=== PATIENT | female | born 1955 | race Caucasian/White ===

== ENCOUNTER 2017-05-21 09:03 | Outpatient (CLI) | payer OTHER ==
[2017-05-21 10:16] LABS: BASOPHILS # (AUTO) 0.1 10^3/uL (0.0-0.1); BASOPHILS % (AUTO) 0.9 %; EOSINOPHILS # (AUTO) 0.1 10^3/uL (0.0-0.7); HCT - HEMATOCRIT 37.8 % (37.0-47.0); HGB - HEMOGLOBIN 12.6 g/dL (12.0-16.0); LYMPHOCYTES # (AUTO) 2.7 10^3/uL (1.5-3.5); LYMPHOCYTES % (AUTO) 45.1 %; MEAN CORPUSCULAR HEMOGLOBIN 30.1 pg (27.0-31.0); MEAN CORPUSCULAR HGB CONC 33.4 g/dL (32.0-36.0); MEAN CORPUSCULAR VOLUME 90.2 fL (81.0-99.0); MEAN PLATELET VOLUME 7.7 fL (7.9-10.8); MONOCYTES # (AUTO) 0.5 10^3/uL (0.0-1.0); MONOCYTES % (AUTO) 8.4 %; NEUTROPHILS # (AUTO) 2.6 10^3/uL (1.5-6.6); NEUTROPHILS % (AUTO) 43.6 %; RED BLOOD COUNT 4.19 10^6/uL (4.20-5.40); RED CELL DISTRIBUTION WIDTH 13.6 % (12.0-15.0)
--- NOTE | 2017-05-21 13:14 | XRAY Report ---
TWO-VIEW RIGHT HIP: 05/21/2017 CLINICAL INDICATION: Hip pain, history of total hip replacement. FINDINGS: Frontal view of the hips and pelvis and frogleg lateral view of the right hip demonstrate no evidence of fracture or dislocation. Hip replacement is in place. There is no evidence of hardwa re complication. IMPRESSION: RIGHT HIP REPLACEMENT. NO FRACTURE OR HARDWARE COMPLICATION IS IDENTIFIED. JOB #: [id number] EXT JOB #:[id number]
== END 2017-05-21 09:04 | disposition home or self-care (01) ==
LOC: LAB 09:03
PROVIDERS: ATTEND Internal Medicine
DX: M25.551 Pain in right hip (principal); Z98.1 Arthrodesis status
CPT/HCPCS: 36415; 85025; 85651; 86140

== ENCOUNTER 2017-07-08 09:45 | Outpatient (CLI) | payer OTHER | END 2017-07-08 09:46 | disposition home or self-care (01) | LOC: LAB.R 09:45 | PROVIDERS: ATTEND Physician Assistant Medical | DX: R39.9 Unspecified symptoms and signs involving the genitourinary system (principal) | CPT/HCPCS: 87086 ==

== ENCOUNTER 2017-08-08 08:04 | Outpatient (CLI) | payer OTHER ==
[2017-08-08 08:23] LABS: BASOPHILS # (AUTO) 0.1 10^3/uL (0.0-0.1); BASOPHILS % (AUTO) 1.4 %; EOSINOPHILS # (AUTO) 0.1 10^3/uL (0.0-0.7); EOSINOPHILS % (AUTO) 1.7 %; HCT - HEMATOCRIT 40.2 % (37.0-47.0); HGB - HEMOGLOBIN 13.3 g/dL (12.0-16.0); LYMPHOCYTES # (AUTO) 2.7 10^3/uL (1.5-3.5); LYMPHOCYTES % (AUTO) 41.4 %; MEAN CORPUSCULAR HEMOGLOBIN 29.6 pg (27.0-31.0); MEAN CORPUSCULAR HGB CONC 33.2 g/dL (32.0-36.0); MEAN CORPUSCULAR VOLUME 89.3 fL (81.0-99.0); MEAN PLATELET VOLUME 7.5 fL (7.9-10.8); MONOCYTES # (AUTO) 0.4 10^3/uL (0.0-1.0); MONOCYTES % (AUTO) 6.5 %; NEUTROPHILS # (AUTO) 3.2 10^3/uL (1.5-6.6); RED BLOOD COUNT 4.49 10^6/uL (4.20-5.40); RED CELL DISTRIBUTION WIDTH 13.7 % (12.0-15.0); UNCORRECTED WHITE BLOOD COUNT 6.5 x10^3/uL; WHITE BLOOD COUNT 6.5 x10^3/uL (4.8-10.8)
[2017-08-08 08:35] LABS: ALBUMIN/GLOBULIN RATIO 1.5 (1.0-2.2); BILIRUBIN,TOTAL 0.7 mg/dL (0.2-1.0); BUN - BLOOD UREA NITROGEN 13 mg/dL (6-20); CALCIUM 9.5 mg/dL (8.5-10.3); CARBON DIOXIDE - CO2 27 mmol/L (21-32); CHLORIDE 103 mmol/L (101-111); CHOL/HDL RATIO 6.5 (<4.4); CHOLESTEROL 258 mg/dL; CREATININE 0.8 mg/dL (0.4-1.0); GFR - MDRD 73 (>89); GLUCOSE 120 mg/dL (70-100); HDL CHOLESTEROL 40 mg/dL; SODIUM 140 mmol/L (135-145); TOTAL PROTEIN 7.7 g/dL (6.7-8.2); TRIGLYCERIDES 298 mg/dL; VLDL CHOLESTEROL 60 mg/dL
== END 2017-08-08 08:05 | disposition home or self-care (01) ==
LOC: LAB 08:04
PROVIDERS: ATTEND Physician Assistant Medical
DX: Z79.899 Other long term (current) drug therapy (principal); M15.9 Polyosteoarthritis, unspecified; F32.9 Major depressive disorder, single episode, unspecified; M25.562 Pain in left knee
CPT/HCPCS: 80053; 80061; 84443; 85025

== ENCOUNTER 2017-10-01 13:32 | Outpatient (CLI) | payer OTHER | END 2017-10-01 13:33 | disposition home or self-care (01) | LOC: LAB.R 13:32 | PROVIDERS: ATTEND Physician Assistant Medical | DX: N30.00 Acute cystitis without hematuria (principal) | CPT/HCPCS: 87086 ==

== ENCOUNTER 2017-10-03 14:37 | Outpatient (CLI) | payer OTHER ==
--- NOTE | 2017-10-05 07:44 | Ultrasound Report ---
EXAM: THYROID ULTRASOUND EXAM DATE: 10/03/2017 03:34 PM. CLINICAL HISTORY: Elevated TSH. COMPARISON: None. TECHNIQUE: Real-time sonographic imaging of the thyroid was performed by the prepress specialist. Multiple re presentative static images were saved for review. FINDINGS: THYROID GLAND: Right Lobe: 4.3 x 1.1 x 1.5 cm, volume 3.7 cc. Mildly heterogeneous. Normal vascularity. Right Lobe Nodules: 1. Superior medial hypoechoic, 0.3 x 0.2 x 0.3 cm. 2. Mid inferior, posterior, hypoechoic, 1.1 x 0.4 x 0.6 cm. No abnormal calcifications. Left Lobe: 4.1 x 1.4 x 1.1 cm, volume 3.3 cc. Mildly heterogeneous. Normal vascularity. Left Lobe Nodules: 1. Mid heterogeneous hypoechoic, 2.5 x 1.0 x 0.9 cm. No abnormal calcifications. Isthmus: 3-4 cm AP. Isthmic Nodules: None. LYMPH NODES: No adenopathy demonstrated in the central or lateral compartment. OTHER: None. IMPRESSION: 1. Bilateral thyroid nodules with the largest measuring 2.5 cm in the left lobe of the thyroid gland which based on FAIZAN guidelines warrants fine needle aspiration biopsy. Management recommendations are based on 2015 [place] [employer] Management Guidelines for A dult Patients with Thyroid Nodules and Differentiated Thyroid Cancer. [facility] Referring Provider Line: [phone] SITE ID: [id number]
== END 2017-10-03 14:38 | disposition home or self-care (01) ==
LOC: DI 14:37
PROVIDERS: ATTEND Physician Assistant Medical
DX: E04.2 Nontoxic multinodular goiter (principal)
CPT/HCPCS: 76536

== ENCOUNTER 2017-10-05 10:39 | Day surgery (SDC) | payer OTHER ==
[2017-10-05] MEDS ORDERED: ONDANSETRON 4 MG/2 ML VIAL ONE (10:58)
[2017-10-05] MEDS ORDERED: diphenhydrAMINE INJ 50 MG/ML VIAL ONE (10:59)
[2017-10-05] MEDS ORDERED: LACTATED RINGERS 1,000 ML IV ONE (11:20)
[2017-10-05] MEDS ORDERED: diphenhydrAMINE INJ 50 MG/ML VIAL IVP ONE (12:03)
[2017-10-05] MEDS ORDERED: ONDANSETRON 4 MG/2 ML VIAL IVP ONE (12:03)
[2017-10-05] MEDS ORDERED: fentaNYL 100 MCG/2 ML VIAL IVP ONE (12:03)
[2017-10-05] MEDS ORDERED: MIDAZOLAM 2 MG/2 ML VIAL IVP ONE (12:03)
[2017-10-05 13:08] VITALS: BP 102/70
== END 2017-10-05 10:40 | disposition home or self-care (01) ==
LOC: SDS 10:39
PROVIDERS: ATTEND Surgery
PROC: 0DBN8ZX Excision of Sigmoid Colon, Via Natural or Artificial Opening Endoscopic, Diagnostic (ICD-10-PCS; principal; 2017-10-05 12:15)
DX: Z12.11 Encounter for screening for malignant neoplasm of colon (principal); K63.5 Polyp of colon; K57.30 Diverticulosis of large intestine without perforation or abscess without bleeding; K64.8 Other hemorrhoids
CPT/HCPCS: 45380; J7120

== ENCOUNTER 2017-11-18 09:36 | Outpatient (CLI) | payer BC ==
--- NOTE | 2017-11-19 11:34 | XRAY Report ---
DATE OF SERVICE: 11/18/2017 TWO VIEW CHEST: 11/18/2017 COMPARISON: CT angio chest 09/05/2014. INDICATION: Dyspnea. TECHNIQUE: Two views of the chest. FINDINGS: Clear lungs. No pneumothorax or pleural effusion. Mediastinum unremarkable. IMPRESSION: NO EVIDENCE OF ACUTE THORACIC PROCESS. TD: 11/18/2017 11:44 [facility] [place] [facility]
== END 2017-11-18 09:37 | disposition home or self-care (01) ==
LOC: DI 09:36
PROVIDERS: ATTEND Physician Assistant Medical
DX: R06.00 Dyspnea, unspecified (principal)
CPT/HCPCS: 71046

== ENCOUNTER 2017-11-20 07:50 | Outpatient (CLI) | payer BC | END 2017-11-20 07:51 | disposition home or self-care (01) | LOC: LAB 07:50 | PROVIDERS: ATTEND Physician Assistant Medical | DX: R06.00 Dyspnea, unspecified (principal) | CPT/HCPCS: 36415; 83880; 85379 ==

== ENCOUNTER 2017-11-20 15:20 | Outpatient (CLI) | payer BC ==
[2017-11-20 15:51] LABS: CREATININE 0.8 mg/dL (0.4-1.0)
[2017-11-20] MEDS ORDERED: IOPAMIDOL-300 100 ML VIAL ONE (15:52)
[2017-11-20] MEDS ORDERED: IOPAMIDOL-300 100 ML VIAL IVP ONE (16:16)
--- NOTE | 2017-11-20 16:41 | CT Report ---
EXAM: CT ANGIOGRAM CHEST EXAM DATE: 11/20/2017 04:16 PM. CLINICAL HISTORY: DYSPNEA, ELEVATED D-DIMER. COMPARISON: None. TECHNIQUE: Routine helical imaging was performed through the chest in the pulmonary arterial phase. I V Contrast: 80 cc Isovue-300. Reconstructions: Coronal 3-D MIP reconstructions.Sagittal and coronal. In accordance with CT protocol optimization, one or more of the following dose reduction techniques w ere utilized for this exam: automated exposure control, adjustment of mA and/or KV based on patient s ize, or use of iterative reconstructive technique. FINDINGS: Pulmonary Arteries: Diagnostic quality: Adequate through the segmental arteries. No evidence for acute or chronic pulmona ry emboli. RV/LV is within normal limits. There is no interventricular septal bowing. There is no reflux of cont rast material in the IVC. Lungs/Pleura: No consolidation, nodules, or edema. No effusions or pneumothorax. Mediastinum: Normal. No cardiac enlargement or adenopathy. Thoracic Aorta: Unremarkable. Upper Abdomen: Unremarkable. Other: None. IMPRESSION: Normal pulmonary CT angiogram. No pulmonary emboli. [facility] Referring Provider Line: [phone] SITE ID: [id number]
== END 2017-11-20 15:21 | disposition home or self-care (01) ==
LOC: DI 15:20
PROVIDERS: ATTEND Physician Assistant Medical
DX: R06.00 Dyspnea, unspecified (principal); Z79.899 Other long term (current) drug therapy
CPT/HCPCS: 36415; 71275; 82565; 83880; 84520; 85379; Q9967

== ENCOUNTER 2017-12-08 09:18 | Outpatient (CLI) | payer BC | END 2017-12-08 09:19 | disposition home or self-care (01) | LOC: RT 09:18 | PROVIDERS: ATTEND Physician Assistant Medical | DX: R06.00 Dyspnea, unspecified (principal) | CPT/HCPCS: 94010 ==

== ENCOUNTER 2017-12-21 11:33 | Outpatient (CLI) | payer BC | END 2017-12-21 11:34 | disposition home or self-care (01) | LOC: LAB 11:33 | PROVIDERS: ATTEND Physician Assistant Medical | DX: E04.1 Nontoxic single thyroid nodule (principal) | CPT/HCPCS: 36415; 84443 ==

== ENCOUNTER 2018-02-11 13:35 | Outpatient (CLI) | payer BC ==
[2018-02-11 17:24] LABS: THYROID STIMULATING HORMONE 4.82 uIU/mL (0.34-5.60)
[2018-02-11 17:26] LABS: FREE T4 (FREE THYROXINE) 0.79 ng/dL (0.58-1.64)
== END 2018-02-11 13:36 ==
LOC: LAB.R 13:35
PROVIDERS: ATTEND Physician Assistant Medical
DX: R94.6 Abnormal results of thyroid function studies (principal)
CPT/HCPCS: 84439; 84443; 84481

== ENCOUNTER 2018-04-09 09:30 | Outpatient (CLI) | payer BC ==
[2018-04-09 13:50] LABS: THYROID STIMULATING HORMONE 3.81 uIU/mL (0.34-5.60)
[2018-04-09 13:53] LABS: FREE T4 (FREE THYROXINE) 0.76 ng/dL (0.58-1.64)
== END 2018-04-09 09:31 | disposition home or self-care (01) ==
LOC: LAB.R 09:30
PROVIDERS: ATTEND Physician Assistant Medical
DX: R94.6 Abnormal results of thyroid function studies (principal); Z79.899 Other long term (current) drug therapy
CPT/HCPCS: 84439; 84443; 84481

== ENCOUNTER 2018-04-16 10:58 | Outpatient (CLI) | payer BC ==
--- NOTE | 2018-04-16 16:19 | XRAY Report ---
LEFT HIP AND PELVIS: 04/16/2018 CLINICAL INDICATION: Hip joint pain. FINDINGS: Frontal view of the hips and pelvis and frogleg lateral view of the left hip demonstrate mild left hip osteoarthritis. Previous right hip replacement is noted. There is no evidence of acute fracture or dislocation. IMPRESSION: MILD LEFT HIP OSTEOARTHRITIS. TD: 04/16/2018 13:16
== END 2018-04-16 10:59 | disposition home or self-care (01) ==
LOC: DI 10:58
PROVIDERS: ATTEND Physician Assistant Medical
DX: M25.552 Pain in left hip (principal); M16.12 Unilateral primary osteoarthritis, left hip

== ENCOUNTER 2018-06-02 08:00 | Outpatient (CLI) | payer BC ==
[2018-06-02 11:50] LABS: THYROID STIMULATING HORMONE 2.92 uIU/mL (0.34-5.60)
[2018-06-02 11:52] LABS: FREE T4 (FREE THYROXINE) 0.87 ng/dL (0.58-1.64)
== END 2018-06-02 08:01 ==
LOC: LAB.R 08:00
PROVIDERS: ATTEND Physician Assistant Medical
DX: R94.6 Abnormal results of thyroid function studies (principal); Z79.899 Other long term (current) drug therapy
CPT/HCPCS: 84439; 84443; 84481

== ENCOUNTER 2018-07-13 07:52 | Outpatient (CLI) | payer BC ==
--- NOTE | 2018-07-13 10:05 | MRI Report ---
Reason: CHRONIC B/I ACHILTES TENDON PAIN W/SWELLING DIFFIC Procedure Date: 07/13/2018 Accession Number: [id number] / [id number] Procedure: MRI - Ankle RT W/O CPT Code: FULL RESULT: EXAM: RIGHT ANKLE/HINDFOOT MRI WITHOUT CONTRAST EXAM DATE: 07/13/2018 08:43 AM. CLINICAL HISTORY: Chronic Achilles tendon pain with swelling. COMPARISON: XR FOOT COMPLETE MIN 3 VIEWS 12/05/2011. TECHNIQUE: Multiplanar, multisequence T1-weighted and fluid-sensitive sequences of the ankle/hindfoot without contrast. Other: None. FINDINGS: Bones: There are cysts or prominent vessels in the angle of the calcaneum. There is no appreciable marrow edema. There are no visible fractures. Articular Cartilage: Unremarkable. Ligaments: The anterior and posterior tibiofibular, anterior and posterior talofibular, and calcaneofibular ligaments are intact. There is fluid signal between the medial malleolus and the deep and superficial fibers of the deltoid ligament, consistent with a grade 2 tear. Anterior Tendons: The tibialis anterior, extensor hallucis longus, and extensor digitorum longus tendons are unremarkable. Medial Tendons: The tibialis posterior, flexor digitorum longus, and flexor hallucis longus tendons are unremarkable. Lateral Tendons: The peroneus brevis and longus are unremarkable. Achilles Tendon: There is a fusiform swelling of the Achilles tendon measuring 6 cm, involving the distal attachment. The tendon measures up to 16 x 10 mm in cross-sectional measurements. There is minimally increased T1 signal within it. The findings are consistent with tendinosis. There is no surrounding soft tissue edema. There is no tear. Musculature: No edema or fatty atrophy. Other: No effusions. The contents of the sinus tarsi and tarsal tunnel are unremarkable. No plantar fasciitis. The subcutaneous tissues are unremarkable. IMPRESSION: 1. Findings consistent with Achilles tendinosis without a tear. 2. Prior trauma to the medial collateral ligament. 3. Otherwise unremarkable. [facility] MUSCULOSKELETAL RADIOLOGY SECTION
--- NOTE | 2018-07-13 13:01 | MRI Report ---
Reason: CHRONIC B/I ACHILTES TENDON PAIN W/SWELLING DIFFIC Procedure Date: 07/13/2018 Accession Number: [id number] / [id number] Procedure: MRI - Ankle LT W/O CPT Code: FULL RESULT: EXAM: LEFT ANKLE/HINDFOOT MRI WITHOUT CONTRAST EXAM DATE: 07/13/2018 09:22 AM. CLINICAL HISTORY: Chronic Achilles pain. COMPARISON: None. TECHNIQUE: Multiplanar, multisequence T1-weighted and fluid-sensitive sequences of the ankle/hindfoot without contrast. Other: None. FINDINGS: Bones and articular surfaces: No significant ankle joint effusion. No talar dome osteochondral lesions. Well-corticated ossification in the region of the retrocalcaneal bursa. Small ganglion cyst formation along the distal lateral and dorsal margin of the talus. Severe cartilage thinning at the calcaneocuboid joint with cuboid subchondral edema and tiny subchondral cyst formation. No fracture identified. Musculotendinous structures: There is moderate fusiform thickening of the Achilles tendon with normal signal maintained. The Achilles tendon is otherwise intact. The plantar fascia appears intact. This shows anterior, posterior, and posterior lateral ankle tendons to appear intact without significant tendinosis or tenosynovitis. Ligaments: Anterior talofibular ligament is not visualized and may be chronically torn. Posterior talofibular, calcaneofibular, and deltoid ligaments appear intact. Normal signal in the tarsal sinus. IMPRESSION: 1. Moderate chronic-appearing Achilles tendinitis. 2. Moderate osteoarthritis at the calcaneocuboid articulation. 3. Nonvisualization of intact anterior talofibular ligament may indicate chronic tear. [facility] MUSCULOSKELET[facility]IOLOGY SECTION
== END 2018-07-13 07:53 | disposition home or self-care (01) ==
LOC: DI 07:52
PROVIDERS: ATTEND Podiatrist
DX: M76.62 Achilles tendinitis, left leg (principal); M19.072 Primary osteoarthritis, left ankle and foot; M25.571 Pain in right ankle and joints of right foot

== ENCOUNTER 2018-07-14 07:55 | Outpatient (CLI) | payer BC ==
[2018-07-14 13:46] LABS: THYROID STIMULATING HORMONE 4.85 uIU/mL (0.34-5.60)
[2018-07-14 13:48] LABS: FREE T4 (FREE THYROXINE) 0.77 ng/dL (0.58-1.64)
== END 2018-07-14 07:56 ==
LOC: LAB.R 07:55
PROVIDERS: ATTEND Physician Assistant Medical
DX: R94.6 Abnormal results of thyroid function studies (principal); Z79.899 Other long term (current) drug therapy
CPT/HCPCS: 84439; 84443; 84481

== ENCOUNTER 2018-08-25 07:47 | Outpatient (CLI) | payer BC ==
[2018-08-25 13:49] LABS: BASOPHILS # (AUTO) 0.1 10^3/uL (0.0-0.1); BASOPHILS % (AUTO) 0.9 %; EOSINOPHILS # (AUTO) 0.1 10^3/uL (0.0-0.7); EOSINOPHILS % (AUTO) 1.9 %; HGB - HEMOGLOBIN 12.9 g/dL (12.0-16.0); LYMPHOCYTES # (AUTO) 2.5 10^3/uL (1.5-3.5); LYMPHOCYTES % (AUTO) 44.3 %; MEAN CORPUSCULAR HEMOGLOBIN 30.3 pg (27.0-31.0); MEAN CORPUSCULAR HGB CONC 33.1 g/dL (32.0-36.0); MEAN CORPUSCULAR VOLUME 91.3 fL (81.0-99.0); MEAN PLATELET VOLUME 8.5 fL (7.9-10.8); MONOCYTES # (AUTO) 0.4 10^3/uL (0.0-1.0); MONOCYTES % (AUTO) 6.6 %; NEUTROPHILS # (AUTO) 2.6 10^3/uL (1.5-6.6); NEUTROPHILS % (AUTO) 46.3 %; PLT - PLATELET COUNT 272 10^3/uL (130-450); RED BLOOD COUNT 4.27 10^6/uL (4.20-5.40); WHITE BLOOD COUNT 5.7 x10^3/uL (4.8-10.8)
[2018-08-25 14:06] LABS: ALBUMIN 4.5 g/dL (3.2-5.5); ALBUMIN/GLOBULIN RATIO 1.7 (1.0-2.2); ALKALINE PHOSPHATASE 46 IU/L (42-121); ALT ALANINE AMINOTRANSFERASE 19 IU/L (10-60); AST ASPARTATE AMINOTRANSFERASE 20 IU/L (10-42); BILIRUBIN,TOTAL 0.5 mg/dL (0.2-1.0); BUN - BLOOD UREA NITROGEN 20 mg/dL (6-20); CALCIUM 9.3 mg/dL (8.5-10.3); CARBON DIOXIDE - CO2 26 mmol/L (21-32); CHLORIDE 103 mmol/L (101-111); CHOL/HDL RATIO 4.7 (<4.4); CHOLESTEROL 214 mg/dL; GFR - MDRD 56 (>89); GLUCOSE 100 mg/dL (70-100); HDL CHOLESTEROL 46 mg/dL; LDL CHOLESTEROL,CALCULATED 129 mg/dL; LDL/HDL RATIO 2.8 (<4.4); SODIUM 137 mmol/L (135-145); TOTAL PROTEIN 7.2 g/dL (6.7-8.2); VLDL CHOLESTEROL 39 mg/dL
[2018-08-26 10:32] LABS: THYROID STIMULATING HORMONE 2.28 uIU/mL (0.34-5.60)
[2018-08-26 10:33] LABS: FREE T4 (FREE THYROXINE) 0.99 ng/dL (0.58-1.64)
== END 2018-08-25 07:48 | disposition home or self-care (01) ==
LOC: LAB.R 07:47
PROVIDERS: ATTEND Physician Assistant Medical
DX: E66.3 Overweight (principal); Z79.899 Other long term (current) drug therapy; F32.9 Major depressive disorder, single episode, unspecified; E04.1 Nontoxic single thyroid nodule; R94.6 Abnormal results of thyroid function studies
CPT/HCPCS: 80053; 80061; 83721; 84439; 84443; 84481; 85025

== ENCOUNTER 2018-09-03 08:00 | Outpatient (CLI) | payer BC | END 2018-09-03 08:01 | disposition home or self-care (01) | LOC: LAB.R 08:00 | PROVIDERS: ATTEND Physician Assistant Medical | DX: N30.00 Acute cystitis without hematuria (principal) | CPT/HCPCS: 87086 ==

== ENCOUNTER 2018-09-22 07:54 | Outpatient (CLI) | payer BC ==
[2018-09-22 16:14] LABS: CALCIUM 9.1 mg/dL (8.5-10.3); CREATININE 0.8 mg/dL (0.4-1.0)
== END 2018-09-22 07:55 | disposition home or self-care (01) ==
LOC: LAB.R 07:54
PROVIDERS: ATTEND Physician Assistant Medical
DX: N28.9 Disorder of kidney and ureter, unspecified (principal)
CPT/HCPCS: 80048

== ENCOUNTER 2018-10-06 12:44 | Outpatient (CLI) | payer BC ==
--- NOTE | 2018-10-08 08:31 | Mammography Report ---
Reason: ANNUAL SCREENING Procedure Date: 10/06/2018 Accession Number: [id number] / [id number] Procedure: TOM - Screening Mammo w/Agustin CPT Code: FULL RESULT: EXAM: Screening Mammo w/Agustin DATE: 10/06/2018 2:10 PM CLINICAL HISTORY: 63-year-old female with family history of breast cancer in a grandmother in her 50s and a male relative around the age of 21 presents for screening. TECHNIQUE: Bilateral CC and MLO views were obtained. A left exaggerated CC view was obtained. COMPARISON: 09/16/2017, 09/05/2016, 06/22/2015, 04/16/2012. FINDINGS: The breasts demonstrate scattered fibroglandular densities bilaterally. No suspicious masses, clustered microcalcifications, or regions of architectural distortion are identified. IMPRESSION: Negative examination RECOMMENDATION: Routine annual screening unless otherwise clinically indicated. BIRADS CATEGORY 1: Negative STANDARD QUALIFYING STATEMENTS: 1. This examination was not reviewed with the aid of Computer-Aided Detection (CAD). 2. A negative or benign imaging report should not delay biopsy if clinically suspicious findings are present. Consider surgical consultation if warranted. More than 5% of cancers are not identified by imaging. 3. Dense breasts may obscure an underlying neoplasm. 4. This examination was reviewed with the aid of 3D breast imaging (tomosynthesis).
== END 2018-10-06 12:45 | disposition home or self-care (01) ==
LOC: DI 12:44
PROVIDERS: ATTEND Physician Assistant Medical
DX: Z12.31 Encounter for screening mammogram for malignant neoplasm of breast (principal); Z80.3 Family history of malignant neoplasm of breast
CPT/HCPCS: 77063; 77067

== ENCOUNTER 2018-10-06 12:44 | Outpatient (CLI) | payer BC ==
--- NOTE | 2018-10-08 08:20 | DEXA Report ---
Reason: POSTMENOPAUSAL, SCREENING MAMMO Procedure Date: 10/06/2018 Accession Number: [id number] / [id number] Procedure: DEX - Dexa Spine and/or Hip CPT Code: FULL RESULT: EXAM: Dexa Spine and/or Hip DATE: 10/06/2018 1:46 PM CLINICAL HISTORY: POSTMENOPAUSAL, SCREENING MAMMO TECHNIQUE: Dual energy x-ray absorptiometry (DXA) was performed on a Asterisk System. Regions measured are the AP Spine, femoral neck, and if needed forearm. COMPARISON: None. In accordance with the International Society for Clinical Densitometry (ISCD) guidelines, data from previous exams may be reanalyzed using current recommendations and techniques. This is done to allow a more accurate basis for comparison with the current study. FINDINGS: The data for the lumbar spine is as follows: BMD (g/cm/cm) T-SCORE Z-SCORE REGION L1 1.152 0.2 0.8 L2 1.417 1.8 2.4 L3 1.451 2.1 2.7 L4 1.449 2.1 2.6 TOTAL 1.368 1.6 2.1 NOTE: All evaluable vertebrae are used for classification The data for the hip is as follows: BMD (g/cm/cm) T-SCORE Z-SCORE REGION Neck 1.195 1.1 1.9 TOTAL 1.178 1.3 1.8 NOTE: The femoral neck or total proximal femur, whichever is lowest, is used for classification. * Denotes significant change at the 95% confidence level. Denotes dissimilar scan types or analysis methods. IMPRESSION: THE WHO CLASSIFICATION BASED ON THE INTERNATIONAL REFERENCE STANDARD IS NORMAL. THE FRACTURE RISK IS NOT INCREASED. RECOMMENDATION: Patients with diagnosis of osteoporosis or osteopenia should have regular bone mineral density assessment. For those eligible for Medicare, routine testing is allowed once every 2 years. Testing frequency can be increased for patients who have rapidly progressing disease or for those who are receiving medical therapy to restore bone mass. COMMENT: World Health Organization (WHO) definitions for osteoporosis and osteopenia: NORMAL BMD: T-score at -1.0 or higher, fracture risk is low OSTEOPENIA BMD: T-score between -1.0 and -2.5, fracture risk is increased. OSTEOPOROSIS BMD: T-score at -2.5 or lower, fracture risk is high. National Osteoporosis Foundation recommends: 1. Obtain adequate dietary calcium (at least 1200 mg per day) and vitamin D (400-800 international units per day). 2. Participate, as appropriate, in regular weightbearing and muscle-strengthening exercise. 3. Avoid tobacco use and reduce alcohol and caffeine intake. 4. For more detailed information see the website at www.NOF.org.
== END 2018-10-06 12:45 | disposition home or self-care (01) ==
LOC: DI 12:44
PROVIDERS: ATTEND Physician Assistant Medical
DX: Z78.0 Asymptomatic menopausal state (principal)
CPT/HCPCS: 77080

== ENCOUNTER 2018-10-20 08:00 | Outpatient (CLI) | payer BC ==
[2018-10-20 14:12] LABS: CALCIUM 9.3 mg/dL (8.5-10.3); CREATININE 0.3 mg/dL (0.4-1.0)
== END 2018-10-20 23:59 | disposition home or self-care (01) ==
LOC: LAB.R 08:00
PROVIDERS: ATTEND Physician Assistant Medical
DX: N28.9 Disorder of kidney and ureter, unspecified (principal); E03.9 Hypothyroidism, unspecified; Z79.899 Other long term (current) drug therapy
CPT/HCPCS: 80048; 84443

== ENCOUNTER 2018-12-08 08:00 | Outpatient (CLI) | payer BC | END 2018-12-08 23:59 | disposition home or self-care (01) | LOC: LAB.R 08:00 | PROVIDERS: ATTEND Physician Assistant Medical | DX: E03.9 Hypothyroidism, unspecified (principal); Z79.899 Other long term (current) drug therapy | CPT/HCPCS: 84443 ==

== ENCOUNTER 2019-02-13 20:05 | Emergency (ER) | payer BC, OTHER ==
[2019-02-13 20:29] VITALS: BP 129/81
[2019-02-13] MEDS ORDERED: PHENAZOPYRIDINE 100 MG TABLET PO STA (21:02)
[2019-02-13] MEDS ORDERED: SULFAMETH/TRIMETH DS 800/160 MG TABLET PO STA (21:03)
--- NOTE | 2019-02-13 21:07 | ED Physician Documentation ---
History of Present Illness - Stated complaint Stated Complaint: BLOODY URINE - Chief complaint Chief Complaint: Abd Pain - History obtained from History obtained from: Patient - History of Present Illness Timing: Prior to arrival - Additonal information Additional information: Patient is a 63-year-old female presenting with concerns for bladder infection. Symptoms started earlier today and she complains of bladder fullness sensation, as well as dysuria and hematuria. Patient denies fever, nausea, vomiting, back pain, or other concerns. No known worsening or improving factors noted. Symptoms feel similar to her previous episodes. 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 : None HEENT: None Psych: Anxiety Musculoskeletal: Osteoarthritis Derm: None - Past Surgical History Past Surgical History: No General: Appendectomy Ortho: Hip replacement, Other /ACCOUNTS PAYABLE ASSOCIATE: section HEENT: Tonsil/Adenoidectomy - Present Medications Home Medications: Ambulatory Orders Medication Instructions Recorded Confirmed buPROPion [Wellbutrin Xl] 1.5 mg PO DAILY 04/14/13 05/04/16 Diazepam [Valium] 10 mg PO 10/05/17 Estradiol [Vagifem] 10 mcg VG 10/05/17 Tramadol HCl 50 mg PO 10/05/17 Phenazopyridine HCl [Pyridium] 200 mg PO TID PRN #6 tablet 02/13/19 Sulfamethox/Trimeth 800/160 1 each PO BID #14 tablet 02/13/19 [Bactrim Ds 800/160] - Allergies Allergies/Adverse Reactions: Allergies Allergy/AdvReac Type Severity Reaction Status Date / Time No Known Drug Allergies Allergy Verified 02/13/19 20:29 - Social History Does the pt smoke?: No Smoking Status: Never smoker Does the pt drink ETOH?: Yes ETOH Use: Wine, Liquor Does the pt have substance abuse?: No - Immunizations Immunizations are current?: Yes Immunizations: TDAP current <10years - POLST Patient has POLST: No PD ED PE NORMAL - General General: Alert and oriented X 3, No acute distress, Well developed/nourished - HEENT HEENT: Atraumatic - Cardiac Cardiac: RRR, No murmur - Respiratory Respiratory: No respiratory distress, Clear bilaterally - Abdomen Abdomen: Normal bowel sounds, Soft, Non tender (No suprapubic tenderness), Non distended - Back Back: No CVA TTP - Derm Derm: Normal color, Warm and dry, No rash - Extremities Extremities: No deformity, No tenderness to palpate - Psych Psych: Normal mood, Normal affect Results - Vitals Vitals: Vital Signs - 24 hr 02/13/19 20:27 Heart Rate 100 Respiratory 18 Rate Blood Pressure 129/81 H O2 Saturation 98 Oxygen O2 Source Room air PD MEDICAL DECISION MAKING - ED course Complexity details: considered differential, d/w patient ED course: Most concerning for hemorrhagic cystitis or urinary tract infection particularly given patient's previous episodes, symptoms similar today to her prior symptoms, and physical exam findings. Do not have high suspicion for nephrolithiasis or pyelonephritis at this time. Also have low suspicion for other intra-abdominal pathology, but considered. Patient requesting Bactrim which has worked well in the past and first dose of this, as well as Pyridium given in the ED. Discussed other supportive cares, use of prescriptions at home, close follow-up, and return precautions. Patient voiced understanding and is comfortable with discharge plan. Departure - Departure Disposition: Home, Self Care Clinical Impression: Cystitis Urinary tract infection Qualifiers: Urinary tract infection type: site unspecified Hematuria presence: with hematuria Qualified Code(s): N39.0 - Urinary tract infection, site not specified; R31.9 - Hematuria, unspecified Condition: Good Instructions: ED UTI Cystitis Female Follow-Up: Amparo Jenkins ARNP, INTENSIVE CARE UNIT NURSE-C [Primary Care Provider] - Within 3 Days Prescriptions: Phenazopyridine HCl [Pyridium] 200 mg PO TID PRN #6 tablet PRN Reason: dysuria Sulfamethox/Trimeth 800/160 [Bactrim Ds 800/160] 1 each PO BID #14 tablet Comments: Please use Pyridium and Bactrim as prescribed for pain and flexion control, respectively. Also recommend hydration, healthy diet, and follow-up with primary care physician in the next 2-3 days. Return to ED sooner if experience worsening symptoms or other concerns.
[2019-02-13 21:32] LABS: BILIRUBIN,URINE NEGATIVE (NEGATIVE); GLUCOSE, URINE (UA) NEGATIVE (NEGATIVE); KETONES,URINE (UA) TRACE mg/dL (NEGATIVE); LEUKOCYTE ESTERASE, URINE SMALL (NEGATIVE); NITRITE,URINE POSITIVE (NEGATIVE); OCCULT BLOOD,URINE LARGE (NEGATIVE); PROTEIN,URINE 100 mg/dL (NEGATIVE); UROBILINOGEN,URINE 0.2 (NORMAL) E.U./dL (NORMAL)
[2019-02-13 21:33] LABS: CLARITY,URINE CLOUDY (CLEAR)
[2019-02-13 21:38] LABS: BACTERIA,URINE Few /HPF (None Seen); RBC,URINE TNTC /HPF (0-5); SQUAMOUS EPITHELIAL CELL,UR FEW Squamous (<= Few)
== END 2019-02-13 21:32 | disposition home or self-care (01) ==
LOC: ED 20:05
DX: N30.91 Cystitis, unspecified with hematuria (principal)
CPT/HCPCS: 81001; 87077; 87086; 87181; 99283; A9270; 81003

== ENCOUNTER 2019-05-10 08:25 | Emergency (ER) | payer OTHER ==
--- NOTE | 2019-05-10 08:39 | ED Physician Documentation ---
PD HPI NVD - Stated complaint Stated Complaint: VOMITING - Chief complaint Chief Complaint: Abd Pain - History obtained from History obtained from: Patient - History of Present Illness Timing - onset: How many days ago (2) Timing - duration: Days (2) Timing - details: Abrupt onset (she had abrupt onset of nausea and vomiting with loose stools as well, with multiple episodes of vomiting 2 days ago. She had vertigo as well, but did not seem to start with the vertigo per se. She says she noted it with the early vomiting, but attributed it to the bending over quickly during emesis.) Associated symptoms: Dizzy. No: Fever, Abdominal pain, Chest pain, Hematemesis Contributing factors: No: Sick contact, Bad food Improved by: No: Vomiting, Position Worsened by: Eating, Position (she has had more nausea with head movement the past couple days, but not to the degree of nausea she had with the initial symptoms.) Similar symptoms before: Has not had sx before Recently seen: Not recently seen Review of Systems Constitutional: reports: Myalgias. denies: Fever, Chills Nose: denies: Rhinorrhea / runny nose, Congestion Throat: denies: Sore throat Respiratory: denies: Cough GI: reports: Nausea, Vomiting, Diarrhea (loose). denies: Abdominal Pain, Abdominal Swelling : denies: Dysuria, Frequency Neurologic: reports: Generalized weakness. 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 : None HEENT: None Psych: Anxiety Musculoskeletal: Osteoarthritis Derm: None - Past Surgical History Past Surgical History: No General: Appendectomy Ortho: Hip replacement, Other /PULVERIZER TENDER: section HEENT: Tonsil/Adenoidectomy - Present Medications Home Medications: Ambulatory Orders Medication Instructions Recorded Confirmed buPROPion [Wellbutrin Xl] 1.5 mg PO DAILY 04/14/13 05/04/16 Diazepam [Valium] 10 mg PO 10/05/17 Estradiol [Vagifem] 10 mcg VG 10/05/17 Tramadol HCl 50 mg PO 10/05/17 Phenazopyridine HCl [Pyridium] 200 mg PO TID PRN #6 tablet 02/13/19 Sulfamethox/Trimeth 800/160 1 each PO BID #14 tablet 02/13/19 [Bactrim Ds 800/160] Meclizine [Antivert] 25 mg PO Q6H PRN #30 tablet 05/10/19 Ondansetron Odt [Zofran] 4 mg TL Q6H PRN #10 tablet 05/10/19 dexAMETHasone [Decadron] 4 mg PO DAILY #5 tablet 05/10/19 - Allergies Allergies/Adverse Reactions: Allergies Allergy/AdvReac Type Severity Reaction Status Date / Time celecoxib [From Celebrex] Allergy Unknown Verified 05/10/19 08:32 - Social History Does the pt smoke?: No Smoking Status: Never smoker Does the pt drink ETOH?: Yes Does the pt have substance abuse?: No - Immunizations Immunizations are current?: Yes Immunizations: TDAP current <10years - POLST Patient has POLST: No PD ED PE NORMAL - Vitals Vital signs reviewed: Yes - General General: Alert and oriented X 3, No acute distress, Well developed/nourished - HEENT HEENT: Atraumatic, PERRL, EOMI (mild nystagmus to the right) - Neck Neck: Supple, no meningeal sign, No adenopathy - Cardiac Cardiac: RRR, No murmur - Respiratory Respiratory: Clear bilaterally - Abdomen Abdomen: Normal bowel sounds, Soft, Non tender, Non distended - Back Back: No CVA TTP - Derm Derm: Normal color, Warm and dry - Extremities Extremities: Normal ROM s pain, No edema, No calf tenderness / cord - Neuro Neuro: Alert and oriented X 3, principal clerk typist 2-12 intact, No motor deficit, No sensory deficit, Normal speech Results - Vitals Vitals: Vital Signs - 24 hr 05/10/19 05/10/19 05/10/19 08:28 10:15 12:00 Temperature 35.6 C L Heart Rate 86 95 78 Respiratory 19 18 18 Rate Blood Pressure 134/97 H 140/94 H 134/74 H O2 Saturation 97 96 98 Oxygen O2 Source Room air - Labs Labs: Laboratory Tests 05/10/19 05/10/19 05/10/19 08:25 08:25 08:25 WBC 7.0 RBC 4.82 Hgb 13.9 Hct 44.8 MCV 92.9 MCH 28.8 MCHC 31.0 L RDW 13.0 Plt Count 300 MPV 9.4 Neut # (Auto) 3.9 Lymph # (Auto) 2.6 [place] # (Auto) 0.4 Eos # (Auto) 0.1 Baso # (Auto) 0.1 Absolute Nucleated RBC 0.00 Nucleated RBC % 0.0 Sodium 140 Potassium 3.6 Chloride 104 Carbon Dioxide 24 Anion Gap 12.0 BUN 14 Creatinine 0.8 Estimated GFR (MDRD) 72 L Glucose 123 H Calcium 9.4 Magnesium 2.3 Total Bilirubin 0.9 AST 18 ALT 17 Alkaline Phosphatase 44 Total Protein 7.6 Albumin 4.4 Globulin 3.2 Albumin/Globulin Ratio 1.4 Lipase 37 Urine Color Urine Clarity Urine pH Ur Specific [place] Urine Protein Urine Glucose (UA) Urine Ketones Urine Occult Blood Urine Nitrite Urine Bilirubin Urine Urobilinogen Ur Leukocyte Esterase Ur Microscopic Review Urine Culture Comments 05/10/19 11:03 WBC RBC Hgb Hct MCV MCH MCHC RDW Plt Count MPV Neut # (Auto) Lymph # (Auto) Winston # (Auto) Eos # (Auto) Baso # (Auto) Absolute Nucleated RBC Nucleated RBC % Sodium Potassium Chloride Carbon Dioxide Anion Gap BUN Creatinine Estimated GFR (MDRD) Glucose Calcium Magnesium Total Bilirubin AST ALT Alkaline Phosphatase Total Protein Albumin Globulin Albumin/Globulin Ratio Lipase Urine Color YELLOW Urine Clarity CLEAR Urine pH 6.5 Ur Specific [place] 1.015 Urine Protein NEGATIVE Urine Glucose (UA) NEGATIVE Urine Ketones TRACE Urine Occult Blood NEGATIVE Urine Nitrite NEGATIVE Urine Bilirubin NEGATIVE Urine Urobilinogen 0.2 (NORMAL) Ur Leukocyte Esterase NEGATIVE Ur Microscopic Review NOT INDICATED Urine Culture Comments NOT INDICATED PD MEDICAL DECISION MAKING - ED course Complexity details: re-evaluated patient (Feeling much better with IV fluids and meds. ), considered differential (she started with nausea and vomiting, and some diarrhea abruptly. Seems likely viral GE. She has vertigo as well that started about that time, but sounds likely from the bending over with the initial vomiting and not the initial cause of the vomiting. No abd pain nor tenderness, so does not seem biliary, obstructive, nor divertic, etc.), d/w patient Departure - Departure Disposition: 01 Home, Self Care Clinical Impression: Vertigo Nausea and vomiting Qualifiers: Vomiting type: unspecified Vomiting Intractability: intractable Qualified Code(s): R11.2 - Nausea with vomiting, unspecified Condition: Stable Record reviewed to determine appropriate education?: Yes Instructions: ED Nausea Vomiting Follow-Up: Amparo Jenkins ARNP, SILK SCREEN PAINTER-C [Primary Care Provider] - Prescriptions: dexAMETHasone [Decadron] 4 mg PO DAILY #5 tablet Meclizine [Antivert] 25 mg PO Q6H PRN #30 tablet PRN Reason: Vertigo Ondansetron Odt [Zofran] 4 mg TL Q6H PRN #10 tablet PRN Reason: Nausea / Vomiting Comments: Small frequent fluids initially and simple foods and progress as tolerated. Ondansetron if needed for nausea. It sounds likely to be a viral stomach illness and also some triggered vertigo. I presume these will taper down now that your symptoms are improved and are able to eat and drink a little bit. Ondansetron if needed for nausea. Meclizine if needed for dizziness. Decadron steroid daily for several more days to help with presumed inflammation of the inner ear. Recheck if not steadily improving over the next couple of days and back to normal within a few days. Discharge Date/Time: 05/10/19 12:02
[2019-05-10 08:49] LABS: BASOPHILS # (AUTO) 0.1 10^3/uL (0.0-0.1); BASOPHILS % (AUTO) 0.9 %; EOSINOPHILS # (AUTO) 0.1 10^3/uL (0.0-0.7); EOSINOPHILS % (AUTO) 1.4 %; HGB - HEMOGLOBIN 13.9 g/dL (12.0-16.0); LYMPHOCYTES # (AUTO) 2.6 10^3/uL (1.5-3.5); LYMPHOCYTES % (AUTO) 36.9 %; MEAN CORPUSCULAR HEMOGLOBIN 28.8 pg (27.0-31.0); MEAN CORPUSCULAR VOLUME 92.9 fL (81.0-99.0); MEAN PLATELET VOLUME 9.4 fL (7.9-10.8); MONOCYTES # (AUTO) 0.4 10^3/uL (0.0-1.0); MONOCYTES % (AUTO) 5.3 %; NEUTROPHILS # (AUTO) 3.9 10^3/uL (1.5-6.6); NEUTROPHILS % (AUTO) 55.1 %; PLT - PLATELET COUNT 300 10^3/uL (130-450); RED BLOOD COUNT 4.82 10^6/uL (4.20-5.40)
[2019-05-10] MEDS ORDERED: ONDANSETRON 4 MG/2 ML VIAL IVP STA (09:02)
[2019-05-10] MEDS ORDERED: diazePAM INJ 5 MG/ML SYRINGE IVP STA (09:02)
[2019-05-10] MEDS ORDERED: FAMOTIDINE 20 MG/2 ML VIAL IVP STA (09:02)
[2019-05-10] MEDS ORDERED: DEXAMETHASONE 10 MG/ML VIAL IVP STA (09:02)
[2019-05-10] MEDS ORDERED: SODIUM CHLORIDE 0.9% 1,000 ML IV ONE ×2 (09:02→09:03)
[2019-05-10 09:05] LABS: ALBUMIN 4.4 g/dL (3.2-5.5); ALBUMIN/GLOBULIN RATIO 1.4 (1.0-2.2); BILIRUBIN,TOTAL 0.9 mg/dL (0.2-1.0); CALCIUM 9.4 mg/dL (8.5-10.3); CREATININE 0.8 mg/dL (0.4-1.0); TOTAL PROTEIN 7.6 g/dL (6.7-8.2)
[2019-05-10 11:14] LABS: BILIRUBIN,URINE NEGATIVE (NEGATIVE); GLUCOSE, URINE (UA) NEGATIVE (NEGATIVE); KETONES,URINE (UA) TRACE mg/dL (NEGATIVE); LEUKOCYTE ESTERASE, URINE NEGATIVE (NEGATIVE); NITRITE,URINE NEGATIVE (NEGATIVE); OCCULT BLOOD,URINE NEGATIVE (NEGATIVE); PH,URINE 6.5 PH (5.0-7.5); PROTEIN,URINE NEGATIVE (NEGATIVE); UROBILINOGEN,URINE 0.2 (NORMAL) E.U./dL (NORMAL)
[2019-05-10 11:16] LABS: CLARITY,URINE CLEAR (CLEAR)
[2019-05-10] MEDS ORDERED: ACETAMINOPHEN 325 MG TABLET PO STA (11:37)
[2019-05-10] MEDS ORDERED: MECLIZINE 12.5 MG TABLET PO STA (11:38)
[2019-05-10 12:02] VITALS: BP 134/74
== END 2019-05-10 12:02 | disposition home or self-care (01) ==
LOC: ED 08:25
DX: R42 Dizziness and giddiness (principal); R11.2 Nausea with vomiting, unspecified
CPT/HCPCS: 36415; 80053; 81003; 83690; 83735; 85025; 96361; 96374; 99283; 99284; A9270; 81001; 87086

== ENCOUNTER 2020-01-02 06:57 | Outpatient (CLI) | payer OTHER ==
[2020-01-02 07:28] LABS: HB2 TOTAL 13.4 g/dL; HEMOGLOBIN A1C 0.55 g/dL; HEMOGLOBIN A1C % 5.9 % (4.6-6.2)
[2020-01-02 07:29] LABS: ALBUMIN 4.3 g/dL (3.2-5.5); ALBUMIN/GLOBULIN RATIO 1.3 (1.0-2.2); ALKALINE PHOSPHATASE 41 IU/L (42-121); ALT ALANINE AMINOTRANSFERASE 16 IU/L (10-60); AST ASPARTATE AMINOTRANSFERASE 15 IU/L (10-42); BILIRUBIN,TOTAL 0.3 mg/dL (0.2-1.0); BUN - BLOOD UREA NITROGEN 19 mg/dL (6-20); CALCIUM 9.3 mg/dL (8.5-10.3); CARBON DIOXIDE - CO2 26 mmol/L (21-32); CHLORIDE 105 mmol/L (101-111); CHOL/HDL RATIO 4.6 (<4.4); CHOLESTEROL 218 mg/dL; GFR - MDRD 56 (>89); GLUCOSE 116 mg/dL (70-100); HDL CHOLESTEROL 47 mg/dL; LDL CHOLESTEROL,CALCULATED 133 mg/dL; LDL/HDL RATIO 2.8 (<4.4); SODIUM 142 mmol/L (135-145); TOTAL PROTEIN 7.5 g/dL (6.7-8.2); VLDL CHOLESTEROL 38 mg/dL
== END 2020-01-02 06:58 | disposition home or self-care (01) ==
LOC: LAB 06:57
PROVIDERS: ATTEND Internal Medicine
DX: E78.2 Mixed hyperlipidemia (principal); R73.02 Impaired glucose tolerance (oral); E03.9 Hypothyroidism, unspecified
CPT/HCPCS: 36415; 80053; 80061; 83036; 83721; 84443